=== PATIENT | female | born 1995 | race Caucasian/White ===

== ENCOUNTER 2020-05-22 20:47 | Emergency (ER) | payer BC ==
[2020-05-22] MEDS ORDERED: Ketorolac Tromethamine 30 MG/ML VIAL ONE (21:30)
[2020-05-22] MEDS ORDERED: Haloperidol Lactate 5 MG/ML VIAL ONE (22:36)
[2020-05-23 09:22] LABS: Bilirubin Negative (Negative); Blood, Urine 10 (Negative); Clarity Clear (Clear); Glucose, Urine (Dipstick) Normal (Negative); Ketone, Urine 5 mg/dL (Negative); Leukocyte 25 (Negative); Nitrite Negative (Negative); Protein, Urine (Dipstick) 30 mg/dl (Neg-Trace); Specific Gravity, Urine 1.025 (1.002-1.036); Urobilinogen Normal mg/dL (Less than 2)
[2020-05-23 09:23] LABS: Bacteria/HPF 2+ HPF (None Seen); Mucous/LPF 3+ LPF (<2+); RBC/HPF 0-3 HPF (0-3); WBC/HPF 0-3 HPF (0-3)
[2020-05-23 09:24] LABS: Pregnancy Test - Urine (BHCG) Negative (Negative); Pregu Control Background? CLEAR/WHITE (CLR/WHITE); Pregu Control Bar Appear? YES (CONTROL BAR); Specific Gravity 1.025 (1.002-1.036)
== END 2020-05-23 01:04 | disposition home or self-care (01) ==
LOC: CSHERS 20:47
DX: R10.30 Lower abdominal pain, unspecified (principal); K21.9 Gastro-esophageal reflux disease without esophagitis; G47.30 Sleep apnea, unspecified; Z79.899 Other long term (current) drug therapy
CPT/HCPCS: 76856; 81003; 81015; 81025; 96372; J1630; J1885

== ENCOUNTER 2021-08-18 15:44 | Emergency (ER) | payer OTHER ==
[2021-08-18 16:49] LABS: Bilirubin Neg (Negative); Blood, Urine 10 (Negative); Clarity Slightly Cloudy (Clear); Glucose, Urine (Dipstick) Normal (Negative); Ketone, Urine 15 mg/dL (Negative); Leukocyte 100 (Negative); Nitrite Negative (Negative); Protein, Urine (Dipstick) 30 mg/dl (Neg-Trace)
[2021-08-18 16:54] LABS: #Eosinphils 0.1 10x3/uL (0.0-0.5); #Monocytes 0.6 10x3/uL (0.0-1.1); #Neutrophils 3.4 10x3/uL (1.5-8.4); %Basophils 0.6 % (0.0-2.0); %Eosinophils 1.7 % (0.0-6.0); %Lymphocytes 41.3 % (18.0-47.0); %Monocytes 8.3 % (0.0-10.0); %Neutrophils 47.4 % (40.0-75.0); Hemoglobin 12.1 g/dL (12.0-15.5); Mean Corpuscular HGB CONC 33.1 g/dL (32.0-36.0); Mean Corpuscular Hemoglobin 27.5 pg (27.0-33.0); Mean Corpuscular Volume 83.2 fl (81.6-98.3); Mean Platelet Volume 8.9 fl (7.4-10.4); Platelet Count 336 10x3/uL (150-450); RBC Distribution Width 14.8 % (11.5-14.5); White Blood Cell (WBC) Count 7.2 10x3/uL (3.5-10.5)
[2021-08-18 17:06] LABS: Bacteria/HPF 4+ HPF (None Seen)
[2021-08-18] MEDS ORDERED: Ondansetron PF 4 MG/2 ML Vial ONE (17:06)
[2021-08-18] MEDS ORDERED: Morphine 4 MG/ML VIAL ONE (17:06)
[2021-08-18 17:07] LABS: RBC/HPF 0-3 HPF (0-3)
[2021-08-18 17:08] LABS: ALT (SGPT) 28 U/L (8-55); AST (SGOT) 25 U/L (5-34); Albumin 4.1 g/dL (3.5-5.0); Alkaline Phosphatase 63 U/L (40-110); Anion Gap 17 mmol/L (10-20); BUN (Urea Nitrogen) 10 mg/dL (7.0-18.7); Bilirubin, Total 0.2 mg/dL (0.2-1.2); Calc. Creatinine Clearance 0 mL/min (70-130); Calcium 9.9 mg/dL (7.8-10.44); Carbon Dioxide 23 mmol/L (22-29); Chloride 103 mmol/L (98-107); Estimated GFR 122; Globulin 3.7 g/dL (2.4-3.5); Glucose 89 mg/dL (70-105); Lipase 37 U/L (8-78); Potassium 4.9 mmol/L (3.5-5.1); Protein, Total 7.8 g/dL (6.0-8.3); Sodium 138 mmol/L (136-145)
[2021-08-18 17:19] LABS: BHCG - Serum Negative (NEGATIVE); Pregs Control Background? CLEAR/WHITE (CLR/WHITE); Pregs Control Bar Appear? YES (CONTROL BAR)
[2021-08-18] MEDS ORDERED: Ketorolac Tromethamine 30 MG/ML VIAL ONE (18:21)
[2021-08-19 16:57] LABS: Chlamydia by PCR Not Detected (NotDetected); GC by PCR Not Detected (NotDetected)
== END 2021-08-18 19:21 | disposition home or self-care (01) ==
LOC: CSHERS 15:44
DX: N39.0 Urinary tract infection, site not specified (principal); R10.2 Pelvic and perineal pain
CPT/HCPCS: 36415; 80053; 81003; 81015; 83690; 84703; 85025; 87480; 87491; 87510; 87591; 87660; 96374; 96375; J1885; J2270; J2405

== ENCOUNTER 2021-09-02 18:34 | Emergency (ER) | payer OTHER ==
[~2021-09-02 18:34] MED LIST: Iopamidol 300 61% 100 ML VIAL FS ONE
[2021-09-02 19:19] LABS: Bilirubin Neg (Negative); Blood, Urine 10 (Negative); Clarity Slightly Cloudy (Clear); Glucose, Urine (Dipstick) Normal (Negative); Ketone, Urine Negative (Negative); Leukocyte Negative (Negative); Nitrite Negative (Negative); Pregnancy Test - Urine (BHCG) Negative (Negative); Protein, Urine (Dipstick) Negative (Neg-Trace); Specific Gravity, Urine 1.015 (1.002-1.036); Urobilinogen Normal mg/dL (Less than 2)
[2021-09-02 19:20] LABS: Pregu Control Background? CLEAR/WHITE (CLR/WHITE); Pregu Control Bar Appear? YES (CONTROL BAR); Specific Gravity 1.015 (1.002-1.036)
[2021-09-02 19:26] LABS: Bacteria/HPF 2+ HPF (None Seen); Mucous/LPF None Seen LPF (<2+); RBC/HPF 0-3 HPF (0-3); WBC/HPF 0-3 HPF (0-3)
[2021-09-02 20:07] LABS: #Basophils 0.1 10x3/uL (0.0-0.2); #Eosinphils 0.2 10x3/uL (0.0-0.5); #Monocytes 0.7 10x3/uL (0.0-1.1); #Neutrophils 3.9 10x3/uL (1.5-8.4); %Basophils 0.6 % (0.0-2.0); %Eosinophils 2.2 % (0.0-6.0); %Lymphocytes 43.3 % (18.0-47.0); %Neutrophils 45.4 % (40.0-75.0); Hemoglobin 12.1 g/dL (12.0-15.5); Mean Corpuscular HGB CONC 33.4 g/dL (32.0-36.0); Mean Corpuscular Hemoglobin 27.5 pg (27.0-33.0); Mean Corpuscular Volume 82.3 fl (81.6-98.3); Mean Platelet Volume 9.3 fl (7.4-10.4); Platelet Count 262 10x3/uL (150-450); RBC Distribution Width 14.6 % (11.5-14.5); White Blood Cell (WBC) Count 8.6 10x3/uL (3.5-10.5)
[2021-09-02] MEDS ORDERED: HYDROcodone/Acetaminophen 10/325 mg Tablet ONE (20:36)
[2021-09-02 21:04] LABS: ALT (SGPT) 40 U/L (8-55); AST (SGOT) 25 U/L (5-34); Albumin 4.1 g/dL (3.5-5.0); Alkaline Phosphatase 62 U/L (40-110); Anion Gap 12 mmol/L (10-20); BUN (Urea Nitrogen) 7 mg/dL (7.0-18.7); Bilirubin, Total 0.2 mg/dL (0.2-1.2); Calc. Creatinine Clearance 0 mL/min (70-130); Calcium 9.4 mg/dL (7.8-10.44); Carbon Dioxide 25 mmol/L (22-29); Chloride 104 mmol/L (98-107); Estimated GFR 123; Glucose 118 mg/dL (70-105); Potassium 4.1 mmol/L (3.5-5.1); Protein, Total 7.1 g/dL (6.0-8.3); Sodium 137 mmol/L (136-145)
== END 2021-09-02 21:53 | disposition home or self-care (01) ==
LOC: CSHERS 18:34
DX: R10.30 Lower abdominal pain, unspecified (principal); G89.29 Other chronic pain; K21.9 Gastro-esophageal reflux disease without esophagitis
CPT/HCPCS: 36415; 74177; 76856; 80053; 81003; 81015; 81025; 85025; 94760; Q9967

== ENCOUNTER 2021-09-22 09:31 | Outpatient (CLI) | payer OTHER ==
[2021-09-22 12:55] LABS: BHCG - Serum Negative (NEGATIVE); Pregs Control Background? CLEAR/WHITE (CLR/WHITE); Pregs Control Bar Appear? YES (CONTROL BAR)
== END 2021-09-22 09:32 | disposition home or self-care (01) ==
LOC: CSHLAB 09:31
PROVIDERS: ATTEND Internal Medicine Gastroenterology
DX: Z01.812 Encounter for preprocedural laboratory examination (principal); Z20.822 Contact with and (suspected) exposure to COVID-19; K21.9 Gastro-esophageal reflux disease without esophagitis
CPT/HCPCS: 84703; 87811

== ENCOUNTER 2021-09-27 06:09 | Day surgery (SDC) | payer OTHER ==
[2021-09-25 10:50] VITALS: BMI 43.8
[2021-09-27] MEDS ORDERED: Lidocaine 1% MPF 2 ML VIAL ONE (07:37)
[2021-09-27] MEDS ORDERED: PROPOFOL 20 ML ONE (08:26)
[2021-09-27] MEDS ORDERED: Fentanyl 100 MCG/2 ML VIAL ONE (08:27)
== END 2021-09-27 09:13 | disposition home or self-care (01) ==
LOC: CSHSDC 06:09
PROVIDERS: ATTEND Internal Medicine Gastroenterology
PROC: 0DB38ZX Excision of Lower Esophagus, Via Natural or Artificial Opening Endoscopic, Diagnostic (ICD-10-PCS; principal; 2021-09-27)
DX: K21.00 Gastro-esophageal reflux disease with esophagitis, without bleeding (principal); R73.03 Prediabetes; G62.9 Polyneuropathy, unspecified; F31.9 Bipolar disorder, unspecified; F41.9 Anxiety disorder, unspecified; E66.9 Obesity, unspecified; Z79.899 Other long term (current) drug therapy; Z88.8 Allergy status to other drugs, medicaments and biological substances; Z20.822 Contact with and (suspected) exposure to COVID-19; Z90.49 Acquired absence of other specified parts of digestive tract; Z98.890 Other specified postprocedural states
CPT/HCPCS: 88305; J2704; J3010

== ENCOUNTER 2021-10-22 13:36 | Emergency (ER) | payer OTHER ==
[2021-10-22] MEDS ORDERED: Acetaminophen 500 MG TAB ONE (14:32)
[2021-10-22] MEDS ORDERED: Ketorolac Tromethamine 30 MG/ML VIAL ONE (14:33)
== END 2021-10-22 15:44 | disposition home or self-care (01) ==
LOC: CSHERS 13:36
DX: S06.0X0A Concussion without loss of consciousness, initial encounter (principal); S00.83XA Contusion of other part of head, initial encounter; W18.09XA Striking against other object with subsequent fall, initial encounter; Y92.002 Bathroom of unspecified non-institutional (private) residence as the place of occurrence of the external cause
CPT/HCPCS: 70450; 72125; 93005; 96374; J1885

== ENCOUNTER 2021-12-20 08:57 | Outpatient (CLI) | payer OTHER | END 2021-12-20 08:58 | disposition home or self-care (01) | LOC: CSHRAD 08:57 | PROVIDERS: ATTEND Surgery | DX: Z30.46 Encounter for surveillance of implantable subdermal contraceptive (principal) ==

== ENCOUNTER 2022-09-27 17:37 | Emergency (ER) | payer OTHER ==
[2022-09-27 18:23] LABS: #Eosinphils 0.2 10x3/uL (0.0-0.5); #Monocytes 0.6 10x3/uL (0.0-1.1); #Neutrophils 2.5 10x3/uL (1.5-8.4); %Basophils 0.3 % (0.0-2.0); %Eosinophils 2.9 % (0.0-6.0); %Lymphocytes 48.8 % (18.0-47.0); %Monocytes 8.7 % (0.0-10.0); Hematocrit 37.8 % (34.9-44.5); Hemoglobin 12.2 g/dL (12.0-15.5); Mean Corpuscular HGB CONC 32.3 g/dL (32.0-36.0); Mean Corpuscular Hemoglobin 27.5 pg (27.0-33.0); Mean Corpuscular Volume 85.3 fl (81.6-98.3); Platelet Count 291 10x3/uL (150-450); RBC Distribution Width 14.1 % (11.5-14.5); Red Blood Cell (RBC) Count 4.43 10x6/uL (3.90-5.03); White Blood Cell (WBC) Count 6.3 10x3/uL (3.5-10.5)
[2022-09-27 18:24] LABS: Pregnancy Test - Urine (BHCG) Negative (Negative)
[2022-09-27 18:25] LABS: Pregu Control Background? CLEAR/WHITE (CLR/WHITE); Pregu Control Bar Appear? YES (CONTROL BAR)
[2022-09-27 18:31] LABS: ALT (SGPT) 16 U/L (8-55); AST (SGOT) 14 U/L (5-34); Alkaline Phosphatase 54 U/L (40-110); Anion Gap 15 mmol/L (10-20); BUN (Urea Nitrogen) 7 mg/dL (7.0-18.7); Bilirubin, Total 0.2 mg/dL (0.2-1.2); Calc. Creatinine Clearance 0 mL/min (70-130); Calcium 8.8 mg/dL (7.8-10.44); Carbon Dioxide 28 mmol/L (22-29); Chloride 103 mmol/L (98-107); Estimated GFR 116; Globulin 3.1 g/dL (2.4-3.5); Glucose 90 mg/dL (70-105); Potassium 4.1 mmol/L (3.5-5.1); Protein, Total 7.1 g/dL (6.0-8.3); Sodium 142 mmol/L (136-145)
[2022-09-27 18:33] LABS: Acetaminophen Less than 10 mcg/mL (10.0-30.0); Alcohol Less than 10.0 mg/dL (Less than 10); Salicylate Less than 8.0 mg/dL (15.0-30.0)
[2022-09-27 18:34] LABS: Amphetamine Detected (NotDetected); Barbiturates Screen Not Detected (NotDetected); Benzodiazepine Screen Not Detected (NotDetected); Cocaine Metabolite Screen Not Detected (NotDetected); Methadone Not Detected (NotDetected); Methamphetamine Not Detected (NotDetected); Opiate Screen Not Detected (NotDetected); Oxycodone Screen Not Detected (NotDetected); Phencyclidine (PCP) Not Detected (NotDetected); THC/Cannabinoid Screen Detected (NotDetected); Tricyclic Screen Not Detected (NotDetected)
== END 2022-09-27 21:25 ==
LOC: CSHERS 17:37
DX: S71.111A Laceration without foreign body, right thigh, initial encounter (principal); G43.909 Migraine, unspecified, not intractable, without status migrainosus; K21.9 Gastro-esophageal reflux disease without esophagitis; X78.1XXA Intentional self-harm by knife, initial encounter
CPT/HCPCS: 36415; 80053; 80306; 80307; 81025; 84443; 85025; 99284

== ENCOUNTER 2024-01-30 11:14 | Emergency (ER) | payer OTHER ==
[2024-01-30] MEDS ORDERED: Ibuprofen 200 MG TAB ONE (12:46)
== END 2024-01-30 12:59 | disposition home or self-care (01) ==
LOC: CSHERS 11:14
DX: S93.492A Sprain of other ligament of left ankle, initial encounter (principal); F17.290 Nicotine dependence, other tobacco product, uncomplicated; W22.8XXA Striking against or struck by other objects, initial encounter; X50.1XXA Overexertion from prolonged static or awkward postures, initial encounter; Y93.89 Activity, other specified
CPT/HCPCS: 99283

== ENCOUNTER 2024-03-07 15:42 | Emergency (ER) | payer OTHER ==
[2024-03-07] MEDS ORDERED: Ketorolac Tromethamine 30 MG (1 mL) VIAL ONE ×2 (17:01)
== END 2024-03-07 18:09 | disposition home or self-care (01) ==
LOC: CSHERS 15:42
DX: M79.672 Pain in left foot (principal); F17.290 Nicotine dependence, other tobacco product, uncomplicated
CPT/HCPCS: 96372; 99283; J1885

== ENCOUNTER 2024-12-08 19:48 | Emergency (ER) | payer OTHER ==
[2024-12-08 20:17] LABS: Glucose, Urine (Dipstick) Normal (Negative); Leukocyte Negative (Negative); Pregnancy Test - Urine (BHCG) Negative (Negative); Pregu Control Background? CLEAR/WHITE (CLR/WHITE); Pregu Control Bar Appear? YES (CONTROL BAR); Protein, Urine (Dipstick) 30 mg/dl (Neg-Trace); Specific Gravity, Urine 1.025 (1.005-1.030)
[2024-12-08] MEDS ORDERED: Ondansetron PF 4 MG/2 ML Vial ONE (20:35)
[2024-12-08 20:41] LABS: Bacteria/HPF 2+ HPF (None Seen); CAUTI Indications for Culture Dysuria,urgency,freq; Mucous/LPF 3+ LPF (<2+); RBC/HPF 0-3 HPF (0-3); Urine Culture Reflex No No; WBC/HPF 0-3 HPF (0-3)
[2024-12-08 20:44] LABS: #Basophils Less than 0.03 10x3/uL (0.0-0.2); #Eosinophils 0.10 10x3/uL (0.0-0.5); #Monocytes 0.48 10x3/uL (0.0-1.1); #Neutrophils 2.82 10x3/uL (1.5-8.4); %Basophils 0.3 % (0.0-2.0); %Eosinophils 1.6 % (0.0-6.0); %Lymphocytes 43.7 % (18.0-47.0); %Monocytes 7.9 % (0.0-10.0); %Neutrophils 46.3 % (40.0-75.0); Hematocrit 33.3 % (34.9-44.5); Hemoglobin 10.9 g/dL (12.0-15.5); Mean Corpuscular Hemoglobin 26.8 pg (27.0-33.0); Mean Corpuscular Volume 81.8 fL (81.6-98.3); Platelet Count 304 10x3/uL (150-450); Red Blood Cell (RBC) Count 4.07 10x6/uL (3.90-5.03); White Blood Cell (WBC) Count 6.09 10x3/uL (3.5-10.5)
[2024-12-08 21:02] LABS: ALT (SGPT) 9 U/L (Less than 34); AST (SGOT) 11 U/L (11-34); Albumin 4.0 g/dL (3.1-4.5); Alkaline Phosphatase 54 U/L (40-110); Anion Gap 13 mmol/L (10-20); BUN (Urea Nitrogen) 11 mg/dL (7.0-18.7); Bilirubin, Total 0.1 mg/dL (0.3-1.2); Calc. Creatinine Clearance 0 mL/min (70-130); Calcium 9.4 mg/dL (7.8-10.44); Carbon Dioxide 25 mmol/L (22-29); Chloride 102 mmol/L (98-107); Globulin 3.5 g/dL (2.4-3.5); Glucose 98 mg/dL (70-105); Lipase 25 U/L (8-78); Potassium 4.0 mmol/L (3.5-5.1); Sodium 136 mmol/L (136-145)
[2024-12-08] MEDS ORDERED: Ketorolac Tromethamine 30 MG (1 mL) VIAL ONE ×2 (21:31→23:24)
== END 2024-12-08 23:32 | disposition home or self-care (01) ==
LOC: CSHERS 19:48
DX: N83.292 Other ovarian cyst, left side (principal); B37.31 Acute candidiasis of vulva and vagina; E11.9 Type 2 diabetes mellitus without complications
CPT/HCPCS: 36415; 74177; 76856; 80053; 81001; 81025; 83690; 85025; 87480; 87510; 87660; 96374; 96375; 96376; J1885; J2270; J2405